=== PATIENT | female | born 1970 | race Caucasian/White ===

== ENCOUNTER 2019-02-19 09:26 | Emergency (ER) | payer OTHER, SELFPAY ==
[2019-02-19 10:01] LABS: #Lymphocytes 0.2 thou/uL (1.20-3.40); #Monocytes 0.2 thou/uL (0.11-0.59); #Neutrophils 19.2 thou/uL (1.40-6.50); %Basophils 0.2 % (0.0-1.0); %Eosinophils 0.1 % (0.0-10.0); %Lymphocytes 1.2 % (21.0-51.0); %Monocytes 1.1 % (0.0-10.0); %Neutrophils 97.5 % (42.0-75.0); Hemoglobin 11.2 g/dL (12.0-16.0); Mean Corpuscular HGB CONC 31.5 g/dL (32.0-36.0); Mean Corpuscular Hemoglobin 27.2 pg (27.0-31.0); Mean Corpuscular Volume 86.3 fL (78.0-98.0); Mean Platelet Volume 7.7 fL (7.4-10.4); Platelet Count 219 thou/uL (130-400); RBC Distribution Width 15.9 % (11.5-14.5); White Blood Cell (WBC) Count 19.7 thou/uL (4.8-10.8)
[2019-02-19] MEDS ORDERED: Ketorolac Tromethamine 30 MG/ML VIAL ONE (10:20)
[2019-02-19] MEDS ORDERED: Ondansetron PF 4 MG/2 ML Vial ONE (10:20)
[2019-02-19 10:22] LABS: ALT (SGPT) 114 U/L (8-55); AST (SGOT) 92 U/L (5-34); Albumin 3.9 g/dL (3.5-5.0); Alkaline Phosphatase 94 U/L (40-150); Anion Gap 14 mmol/L (10-20); BUN (Urea Nitrogen) 15 mg/dL (7.0-18.7); Bilirubin, Total 0.5 mg/dL (0.2-1.2); Calc. Creatinine Clearance 0 mL/min (70-130); Calcium 9.5 mg/dL (7.8-10.44); Carbon Dioxide 26 mmol/L (22-29); Chloride 104 mmol/L (98-107); Estimated GFR-MDRD Greater than 90; Globulin 3.5 g/dL (2.4-3.5); Glucose 100 mg/dL (70-105); Lipase 19 U/L (8-78); Potassium 3.5 mmol/L (3.5-5.1); Protein, Total 7.4 g/dL (6.0-8.3); Sodium 140 mmol/L (136-145)
[2019-02-19] MEDS ORDERED: Piperacillin/Tazobactam 4.5 GM VIAL ONE (11:01)
[2019-02-19] MEDS ORDERED: Sodium Chloride 0.9% 100 ML ONE (11:05)
[2019-02-19] MEDS ORDERED: Acetaminophen 500 MG TAB ONE (12:13)
[2019-02-19] MEDS ORDERED: Cefepime 1 GM VIAL ONE (12:22)
[2019-02-19 12:29] LABS: Clarity SLIGHTLY (Clear); Leukocyte Negative (Negative); Nitrite Negative (Negative); pH, Urine 7.5 (5.0-9.0)
[2019-02-19 12:30] LABS: Bacteria/HPF Rare-Few HPF (None Seen); Bilirubin Negative (Negative); Blood, Urine Small (Negative); Crystals/HPF None Seen HPF (Negative); Glucose, Urine (Dipstick) Negative (Negative); Hyaline Casts/LPF NONE SEEN LPF (0-3 Hyaline); Other Casts/LPF None Seen LPF (0-3 Hyaline); Oval Fat Bodies/HPF None Seen HPF (None Seen); Protein, Urine (Dipstick) 100 mg/dL (Neg-Trace); Renal Epithelial None Seen HPF (0-3); Sperm/HPF None Seen HPF (None Seen); Squamous Epithelial 0-3 HPF (0-3); Transitional Epithelial NONE SEEN HPF (0-3); Trichomonas/HPF None Seen HPF (None Seen); Urobilinogen 0.2 mg/dL (0.2-1.0); WBC/HPF 0-3 HPF (0-3); Yeast-All Forms None Seen HPF (None Seen)
[2019-02-19] MEDS ORDERED: Ibuprofen 800 MG TAB ONE (12:43)
[2019-02-19] MEDS ORDERED: Ibuprofen 200 MG TAB ONE ×2 (12:44→12:45)
--- NOTE | 2019-02-19 13:39 | RAD ---
PORTABLE CHEST: Date: 02/19/19 Comparison made with the 11/24/11 study from [facility]. FINDINGS: The heart is normal in size and the lungs are clear. The left hilum is more prominent than the right, but I believe it is all left pulmonary artery made a little more prominent by the patient being turn ed slightly. There is no sign of pneumonia or pleural effusion. IMPRESSION: No definite acute findings. See above. POS: HOME
--- NOTE | 2019-02-19 14:10 | CT ---
CT ABDOMEN AND PELVIS WITH CONTRAST: Date: 02/19/19 No prior studies available for comparison. The lung bases are clear. The liver, spleen, pancreas, adrenal glands, gallbladder, and aorta were unremarkable in appearance. If anything, the liver may be upper normal in size. Attention is drawn to the right kidney. There is a 1.5 cm lucent area in the middle to lower portion of this kidney. Its margins are not terribly discrete and there is a little bit of low density around it resembling edema. Because of this, it does not meet criteria to be diagnosed as a simple cyst. Wh ile there is no enhancement within it to suggest solid mass, further workup of this finding is needed . In the appropriate clinical setting, an abscess would be included in the differential. An ultrasoun d to look at it further in correlation with the clinical presentation is advised. The left kidney adela ears normal. The bowel shows no distention, wall thickening, or inflammatory changes around it. The patient's appe ndix is borderline in size, measuring 6-7 mm in caliber, but the periappendiceal fat shows no streaki ng at all. There is no hyperemia of the wall of the appendix either. Thus, I cannot diagnose appendic itis at this time. No free air or free fluid seen. CT of the pelvis was remarkable for a 3.5 cm hypodense mass in the body of the uterus. Statistically, this is most likely a fibroid, however, further studies of it are needed, along with correlation of a pelvic exam. An elective pelvic ultrasound is recommended. I do not see any free fluid or inflammat ory changes in the pelvis. Regarding the lumbar spine, there is very slight spondylolisthesis of L4 on L5, which appears to be o n the basis of facet arthritis. There is mild disc space narrowing at L5-S1, as well as T12-L1. At th e T12-L1 level, there is an osteophyte that causes some impingement on the right lateral recess at th at level. IMPRESSION: 1. 1.5 cm cystic area in the right kidney with slightly indistinct margins and some low density arou nd it resembling edema. Because of this, it does not meet all criteria for a simple cyst. An ultrasou nd is recommended. Correlation with urinalysis and clinical presentation is advised since a small abs cess might be considered in the differential. 2. 3.5 cm mass in the body of the uterus. Most likely a fibroid, but a pelvic ultrasound as follow-u p would be preferred. 3. The appendiceal width is borderline at 6-7 mm, but there is no evidence of enhancement of the wal ls or streaking in the periappendiceal fat to allow a diagnosis of appendicitis. Correlate with clini [place] presentation. Findings discussed with Dr. Levin at 1146 hours on 02/19/19. CODE CR. POS: HOME
== END 2019-02-19 12:50 | disposition short-term general hospital (02) ==
LOC: BURERS 09:26
DX: A41.9 Sepsis, unspecified organism (principal); N12 Tubulo-interstitial nephritis, not specified as acute or chronic; F41.9 Anxiety disorder, unspecified; F32.9 Major depressive disorder, single episode, unspecified; Z79.899 Other long term (current) drug therapy
CPT/HCPCS: 36415; 71045; 74177; 80053; 81003; 81015; 83605; 83690; 85025; 87040; 87077; 87086; 87149; 87186; 87804; 96361; 96365; 96375; J0692; J1885; J2405; J2543; J3370; J3490

== ENCOUNTER 2022-03-26 05:22 | Observation (INO) | payer SELFPAY ==
[2022-03-26] MEDS ORDERED: Ondansetron PF 4 MG/2 ML Vial ONE (05:55)
[2022-03-26] MEDS ORDERED: Glycopyrrolate 0.4 MG/ 2 ML VIAL ONE (06:43)
[2022-03-26] MEDS ORDERED: Famotidine/PF 20 mg/2ml Vial ONE (06:43)
[2022-03-26] MEDS ORDERED: Ketorolac Tromethamine 30 MG/ML VIAL ONE (06:43)
[2022-03-26 06:44] LABS: #Lymphocytes 0.8 thou/uL (1.20-3.40); #Monocytes 0.5 thou/uL (0.11-0.59); %Basophils 0.3 % (0.0-1.0); %Lymphocytes 6.9 % (21.0-51.0); %Monocytes 4.3 % (0.0-10.0); %Neutrophils 88.4 % (42.0-75.0); Mean Corpuscular HGB CONC 32.8 g/dL (32.0-36.0); Mean Corpuscular Hemoglobin 23.6 pg (27.0-31.0); Mean Platelet Volume 7.2 fL (7.4-10.4); Platelet Count 242 thou/uL (130-400); RBC Distribution Width 17.7 % (11.5-14.5); Red Blood Cell (RBC) Count 3.81 mill/uL (4.20-5.40); White Blood Cell (WBC) Count 11.3 thou/uL (4.8-10.8)
[2022-03-26 06:46] LABS: ALT (SGPT) 13 U/L (8-55); AST (SGOT) 14 U/L (5-34); Albumin 3.7 g/dL (3.5-5.0); Alkaline Phosphatase 81 U/L (40-110); Anion Gap 16 mmol/L (10-20); BUN (Urea Nitrogen) 7 mg/dL (9.8-20.1); Bilirubin, Total 0.4 mg/dL (0.2-1.2); Calc. Creatinine Clearance 0 mL/min (70-130); Calcium 8.9 mg/dL (7.8-10.44); Carbon Dioxide 22 mmol/L (22-29); Chloride 103 mmol/L (98-107); Globulin 3.5 g/dL (2.4-3.5); Glucose 104 mg/dL (70-105); Lipase 29 U/L (8-78); Potassium 3.3 mmol/L (3.5-5.1); Protein, Total 7.2 g/dL (6.0-8.3); Sodium 138 mmol/L (136-145)
[2022-03-26 07:01] LABS: Anisocytosis SLIGHT = 6-15 cells (100X) (0-5/hpf); MDiff Complete? YES; Microcytosis SLIGHT = 6-15 cells (100X) (0-5/hpf); Platelet Morphology Comment Appears Adequate
[2022-03-26 09:21] LABS: Clarity Clear (Clear)
[2022-03-26 09:22] LABS: Bilirubin Negative (Negative); Blood, Urine Large (Negative); Glucose, Urine (Dipstick) Negative (Negative); Ketone, Urine 80 mg/dL (Negative); Leukocyte Negative (Negative); Nitrite Negative (Negative); Protein, Urine (Dipstick) 30 mg/dL (Neg-Trace); Urobilinogen 0.2 mg/dL (Less than 2); pH, Urine 8.5 (5.0-9.0)
[2022-03-26 09:24] LABS: Bacteria/HPF Rare-Few HPF (None Seen); Transitional Epithelial 0-3 HPF (None Seen); WBC/HPF 0-3 HPF (0-3)
[2022-03-26] MEDS ORDERED: Cefepime 2 GM VIAL ONE (09:26)
[2022-03-26] MEDS ORDERED: Sodium Chloride 0.9% 100 ML ONE (09:26)
[2022-03-26] MEDS ORDERED: diphenhydrAMINE 50 MG/ML VIAL ONE ×2 (10:14→10:16)
[2022-03-26] MEDS ORDERED: Metoclopramide HCl 10 MG/2 ML VIAL ONE (10:14)
[2022-03-26 13:22] LABS: SARS-CoV-2 NAA Rapid Test Not Detected (NotDetected)
[2022-03-26 14:24] VITALS: BMI 23.3
[2022-03-26] MEDS ORDERED: Ondansetron ODT 4 MG TAB SL PRN (15:00)
[2022-03-26] MEDS ORDERED: Ondansetron PF 4 MG/2 ML Vial IVP PRN (15:00)
[2022-03-26] MEDS ORDERED: Loperamide HCl 2 MG CAP PO PRN ×2 (15:49)
[2022-03-26] MEDS ORDERED: Acetaminophen 650 MG Suppository PR PRN (15:49)
[2022-03-26] MEDS: Acetaminophen 325 MG TAB PO PRN ×2 (16:11→21:12)
[2022-03-26] MEDS ORDERED: Cefepime 2 GM in Sodium Chloride 0.9% 100 ML IVPB SCH (21:00)
[2022-03-27] MEDS: HYDROcodone/Acetaminophen 5/325 mg Tablet PO PRN ×4 (01:22→23:29)
[2022-03-27] MEDS: Ibuprofen 800 MG TAB PO PRN ×2 (04:53→13:31)
[2022-03-27 05:07] LABS: Hemoglobin 7.5 g/dL (12.0-16.0); Mean Corpuscular HGB CONC 31.8 g/dL (32.0-36.0); Mean Corpuscular Hemoglobin 23.1 pg (27.0-31.0); Mean Corpuscular Volume 72.6 fL (78.0-98.0); Platelet Count 193 thou/uL (130-400); RBC Distribution Width 18.1 % (11.5-14.5); Red Blood Cell (RBC) Count 3.24 mill/uL (4.20-5.40)
[2022-03-27 05:11] LABS: Anion Gap 12 mmol/L (10-20); BUN (Urea Nitrogen) 6 mg/dL (9.8-20.1); Calc. Creatinine Clearance 112 mL/min (70-130); Calcium 7.8 mg/dL (7.8-10.44); Carbon Dioxide 25 mmol/L (22-29); Chloride 103 mmol/L (98-107); Glucose 94 mg/dL (70-105); Potassium 3.1 mmol/L (3.5-5.1); Sodium 137 mmol/L (136-145)
[2022-03-27 05:40] LABS: Band 8 % (5-11); Eosinophils 2 % (0-10); Hypochromia SLIGHT = 6-15 cells (100X) (0-5/hpf); Large Platelets SLIGHT; Lymphocytes 11 % (21-51); MDiff Complete? YES; Microcytosis SLIGHT = 6-15 cells (100X) (0-5/hpf); Monocytes 6 % (0-10); Neutrophil 73 % (42-75); Nucleated RBC 1 % (0); Platelet Morphology Comment Appears Adequate; Poikilocytosis SLIGHT = 6-15 cells (100X) (0-5/hpf)
[2022-03-27] MEDS: Ondansetron ODT 4 MG TAB PO PRN (13:21)
[2022-03-27 15:48] LABS: Hemoglobin 7.2 g/dL (12.0-16.0); Mean Corpuscular HGB CONC 31.7 g/dL (32.0-36.0); Mean Corpuscular Hemoglobin 23.3 pg (27.0-31.0); Mean Corpuscular Volume 73.5 fL (78.0-98.0); Mean Platelet Volume 7.5 fL (7.4-10.4); Platelet Count 213 thou/uL (130-400); RBC Distribution Width 17.8 % (11.5-14.5); Red Blood Cell (RBC) Count 3.09 mill/uL (4.20-5.40)
[2022-03-27] MEDS ORDERED: Potassium Chloride 20 MEQ TAB PO SCH (17:00)
[2022-03-27] MEDS: Ferrous Sulfate 325 MG TAB PO SCH (18:29)
[2022-03-27] MEDS: cefTRIAXone\\ROCEPHIN 1 GM in Sodium Chloride 0.9% 100 ML IVPB SCH (18:30)
[2022-03-27] MEDS: Acetaminophen 325 MG TAB PO PRN ×2 (18:40→23:30)
[2022-03-28] MEDS: Acetaminophen 325 MG TAB PO PRN ×2 (03:56→08:51)
[2022-03-28 05:44] LABS: Hemoglobin 6.7 g/dL (12.0-16.0); Mean Corpuscular HGB CONC 31.7 g/dL (32.0-36.0); Mean Corpuscular Hemoglobin 22.9 pg (27.0-31.0); Mean Corpuscular Volume 72.4 fL (78.0-98.0); Mean Platelet Volume 6.7 fL (7.4-10.4); Platelet Count 191 thou/uL (130-400); RBC Distribution Width 18.3 % (11.5-14.5); Red Blood Cell (RBC) Count 2.92 mill/uL (4.20-5.40); White Blood Cell (WBC) Count 7.2 thou/uL (4.8-10.8)
[2022-03-28 05:57] LABS: ALT (SGPT) 10 U/L (8-55); AST (SGOT) 15 U/L (5-34); Albumin 3.1 g/dL (3.5-5.0); Alkaline Phosphatase 62 U/L (40-110); Anion Gap 13 mmol/L (10-20); BUN (Urea Nitrogen) 5 mg/dL (9.8-20.1); Bilirubin, Total 0.3 mg/dL (0.2-1.2); Calc. Creatinine Clearance 119 mL/min (70-130); Calcium 7.9 mg/dL (7.8-10.44); Carbon Dioxide 27 mmol/L (22-29); Chloride 99 mmol/L (98-107); Globulin 3.3 g/dL (2.4-3.5); Glucose 104 mg/dL (70-105); Potassium 3.1 mmol/L (3.5-5.1); Protein, Total 6.4 g/dL (6.0-8.3); Sodium 136 mmol/L (136-145)
[2022-03-28 07:32] LABS: Band 5 % (5-11); Hypochromia SLIGHT = 6-15 cells (100X) (0-5/hpf); Large Platelets SLIGHT; Lymphocytes 10 % (21-51); MDiff Complete? YES; Microcytosis SLIGHT = 6-15 cells (100X) (0-5/hpf); Monocytes 7 % (0-10); Neutrophil 78 % (42-75)
[2022-03-28] MEDS ORDERED: Metoclopramide HCl 10 MG/2 ML VIAL IVP SCH (08:45)
[2022-03-28] MEDS: Ferrous Sulfate 325 MG TAB PO SCH ×2 (08:50→15:41)
[2022-03-28] MEDS: HYDROcodone/Acetaminophen 5/325 mg Tablet PO PRN (12:08)
[2022-03-28] MEDS: Ibuprofen 800 MG TAB PO PRN (15:40)
[2022-03-28] MEDS: medroxyPROGESTERone Acetate 5 MG TAB PO SCH (15:41)
[2022-03-28] MEDS: cefTRIAXone\\ROCEPHIN 1 GM in Sodium Chloride 0.9% 100 ML IVPB SCH (17:40)
[2022-03-28 20:05] LABS: Hemoglobin 8.7 g/dL (12.0-16.0); Mean Corpuscular HGB CONC 32.2 g/dL (32.0-36.0); Mean Corpuscular Hemoglobin 24.6 pg (27.0-31.0); Mean Corpuscular Volume 76.5 fL (78.0-98.0); Mean Platelet Volume 7.8 fL (7.4-10.4); Platelet Count 198 thou/uL (130-400); RBC Distribution Width 17.7 % (11.5-14.5); Red Blood Cell (RBC) Count 3.55 mill/uL (4.20-5.40); White Blood Cell (WBC) Count 8.5 thou/uL (4.8-10.8)
[2022-03-28 20:19] LABS: Anion Gap 13 mmol/L (10-20); BUN (Urea Nitrogen) 5 mg/dL (9.8-20.1); Calc. Creatinine Clearance 121 mL/min (70-130); Calcium 8.2 mg/dL (7.8-10.44); Carbon Dioxide 27 mmol/L (22-29); Chloride 103 mmol/L (98-107); Glucose 103 mg/dL (70-105); Sodium 140 mmol/L (136-145)
[2022-03-28 20:25] LABS: Potassium 2.9 mmol/L (3.5-5.1)
[2022-03-28] MEDS ORDERED: Potassium Chloride 20 MEQ TAB PO SCH (20:45)
[2022-03-29] MEDS: Acetaminophen 325 MG TAB PO PRN ×4 (02:18→23:42)
[2022-03-29 05:40] LABS: Anion Gap 15 mmol/L (10-20); BUN (Urea Nitrogen) 5 mg/dL (9.8-20.1); Calc. Creatinine Clearance 123 mL/min (70-130); Calcium 8.3 mg/dL (7.8-10.44); Carbon Dioxide 25 mmol/L (22-29); Chloride 102 mmol/L (98-107); Glucose 96 mg/dL (70-105); Potassium 3.3 mmol/L (3.5-5.1); Sodium 139 mmol/L (136-145)
[2022-03-29 05:47] LABS: Mean Corpuscular HGB CONC 30.5 g/dL (32.0-36.0); Mean Corpuscular Hemoglobin 22.9 pg (27.0-31.0); Mean Platelet Volume 7.2 fL (7.4-10.4); Platelet Count 221 thou/uL (130-400); Red Blood Cell (RBC) Count 3.51 mill/uL (4.20-5.40); White Blood Cell (WBC) Count 9.2 thou/uL (4.8-10.8)
[2022-03-29] MEDS: Ferrous Sulfate 325 MG TAB PO SCH ×2 (08:07→17:29)
[2022-03-29] MEDS: medroxyPROGESTERone Acetate 5 MG TAB PO SCH (14:58)
[2022-03-29] MEDS: cefTRIAXone\\ROCEPHIN 2 GM in Sodium Chloride 0.9% 100 ML IVPB SCH (17:32)
[2022-03-29] MEDS ORDERED: Meropenem 1 GM in Sodium Chloride 0.9% 100 ML IVPB SCH (22:00)
[2022-03-29] MEDS: Meropenem 1 GM in Sodium Chloride 0.9% 100 ML IVPB SCH (23:30)
[2022-03-30] MEDS: HYDROcodone/Acetaminophen 5/325 mg Tablet PO PRN (03:17)
[2022-03-30 05:16] LABS: Anion Gap 15 mmol/L (10-20); BUN (Urea Nitrogen) 5 mg/dL (9.8-20.1); Calc. Creatinine Clearance 136 mL/min (70-130); Carbon Dioxide 25 mmol/L (22-29); Chloride 101 mmol/L (98-107); Glucose 110 mg/dL (70-105); Sodium 138 mmol/L (136-145)
[2022-03-30 05:18] LABS: Potassium 2.9 mmol/L (3.5-5.1)
[2022-03-30 05:32] LABS: Hemoglobin 9.1 g/dL (12.0-16.0); Mean Corpuscular HGB CONC 33.5 g/dL (32.0-36.0); Mean Corpuscular Hemoglobin 24.7 pg (27.0-31.0); Mean Corpuscular Volume 73.9 fL (78.0-98.0); Mean Platelet Volume 7.2 fL (7.4-10.4); Platelet Count 236 thou/uL (130-400); RBC Distribution Width 17.9 % (11.5-14.5); Red Blood Cell (RBC) Count 3.67 mill/uL (4.20-5.40); White Blood Cell (WBC) Count 7.9 thou/uL (4.8-10.8)
[2022-03-30 05:33] LABS: #Eosinphils 0.1 thou/uL (0.0-0.7); #Lymphocytes 1.2 thou/uL (1.20-3.40); #Monocytes 0.6 thou/uL (0.11-0.59); %Basophils 0.6 % (0.0-1.0); %Eosinophils 0.9 % (0.0-10.0); %Lymphocytes 14.7 % (21.0-51.0); %Monocytes 7.8 % (0.0-10.0)
[2022-03-30 05:35] LABS: Anisocytosis SLIGHT = 6-15 cells (100X) (0-5/hpf); MDiff Complete? YES; Microcytosis SLIGHT = 6-15 cells (100X) (0-5/hpf); Ovalocytes SLIGHT = 2-5 cells (100X) (0-1/hpf); Platelet Morphology Comment Appears Adequate
[2022-03-30] MEDS: Meropenem 1 GM in Sodium Chloride 0.9% 100 ML IVPB SCH ×3 (05:53→21:13)
[2022-03-30 06:21] LABS: Lactic Acid 1.1 mmol/L (0.5-2.2)
[2022-03-30] MEDS ORDERED: Potassium Chloride 20 MEQ TAB PO SCH (07:45)
[2022-03-30] MEDS: Ferrous Sulfate 325 MG TAB PO SCH ×2 (08:39→16:45)
[2022-03-30] MEDS: Potassium Chloride 20 MEQ TAB PO SCH ×2 (08:43→16:44)
[2022-03-30] MEDS: Acetaminophen 325 MG TAB PO PRN (08:46)
[2022-03-30] MEDS ORDERED: SUMAtriptan Succinate 6 MG/0.5 ML VIAL SC PRN (09:02)
[2022-03-30] MEDS: Indomethacin 25 mg Capsule PO PRN (09:24)
[2022-03-30] MEDS: Ondansetron ODT 4 MG TAB PO PRN (09:24)
[2022-03-30] MEDS: cefTRIAXone\\ROCEPHIN 2 GM in Sodium Chloride 0.9% 100 ML IVPB SCH (18:00)
[2022-03-31 00:35] VITALS: BP 137/79; TEMP 97.8
[2022-03-31] MEDS: Indomethacin 25 mg Capsule PO PRN (03:45)
[2022-03-31 05:17] LABS: Anion Gap 16 mmol/L (10-20); BUN (Urea Nitrogen) 4 mg/dL (9.8-20.1); Calc. Creatinine Clearance 128 mL/min (70-130); Calcium 8.3 mg/dL (7.8-10.44); Carbon Dioxide 22 mmol/L (22-29); Chloride 103 mmol/L (98-107); Glucose 107 mg/dL (70-105); Potassium 3.5 mmol/L (3.5-5.1); Sodium 137 mmol/L (136-145)
[2022-03-31] MEDS: Meropenem 1 GM in Sodium Chloride 0.9% 100 ML IVPB SCH (06:13)
[2022-03-31] MEDS: Potassium Chloride 20 MEQ TAB PO SCH (08:11)
[2022-03-31] MEDS: Ferrous Sulfate 325 MG TAB PO SCH (08:11)
== END 2022-03-31 10:00 | disposition home or self-care (01) ==
LOC: BURERS 05:22 → BURMED 10:59
PROVIDERS: ADMIT Family Medicine; ATTEND Family Medicine
DX: J69.0 Pneumonitis due to inhalation of food and vomit (principal); G43.109 Migraine with aura, not intractable, without status migrainosus; K52.9 Noninfective gastroenteritis and colitis, unspecified; E86.0 Dehydration; N92.4 Excessive bleeding in the premenopausal period; D64.9 Anemia, unspecified; M19.90 Unspecified osteoarthritis, unspecified site; K57.30 Diverticulosis of large intestine without perforation or abscess without bleeding; Z88.0 Allergy status to penicillin; Z88.5 Allergy status to narcotic agent; Z20.822 Contact with and (suspected) exposure to COVID-19
CPT/HCPCS: 36415; 36430; 74176; 80048; 80053; 81003; 81015; 83605; 83690; 85025; 85027; 86850; 86900; 86901; 87040; 87804; 96361; 96365; 96366; 96367; 96368; 96375; 96376; G0378; J0692; J0696; J1200; J1885; J2185; J2405; J2765; J3370; J3490; P9016; Q0162; S0028; U0002